=== PATIENT | male | born 1970 | race American Indian/Alaskan Native ===

== ENCOUNTER 2019-10-31 09:30 | Inpatient (IN) | payer OTHER ==
[2019-10-31] MEDS ORDERED: HEPARIN 1,000 UNIT/1 ML VIAL IV ONE (09:40)
[2019-10-31] MEDS ORDERED: ASPIRIN 81 MG TAB CHEW PO ONE (09:40)
[2019-10-31] MEDS ORDERED: SODIUM CHLORIDE 0.9% 1000 ML 1,000 ML IV ONE (09:40)
--- NOTE | 2019-10-31 09:46 | Emergency Department Report ---
ED Chest Pain HPI - General Chief Complaint: Chest Pain Stated Complaint: CHEST PAIN Source: patient Mode of arrival: Ambulatory Limitations: No Limitations - History of Present Illness Initial Comments: 48-year-old -Marshallese male presents to the emergency department through triage with complaint of some midsternal chest pain that has been going on since yesterday and getting progressively worse. He tried some Tylenol for his pain without relief. He denies any shortness of breath, fever, nausea, vomiting, diaphoresis or back pain. He denies any past medical history. He denies any tobacco or illicit drug use. He denies any family history of early cardiac events or disease. Severity scale (0 -10): 10 - Related Data Allergies Allergy/AdvReac Type Severity Reaction Status Date / Time shrimp Allergy Hives Verified 10/31/19 09:35 Heart Score - HEART Score History: Highly suspicious EKG: Significant ST-depression Age: 45-65 Risk factors: 1-2 risk factors Troponin: < normal limit HEART Score: 6 - Critical Actions Critical Actions: 4-6 pts:12-16.6% risk of adverse cardiac event. Should be admitted ED Review of Systems ROS: Stated complaint: CHEST PAIN Other details as noted in HPI Comment: All other systems reviewed and negative Constitutional: denies: chills, fever Eyes: denies: eye pain, vision change ENT: denies: ear pain, throat pain Respiratory: denies: cough, shortness of breath Cardiovascular: chest pain. denies: palpitations Gastrointestinal: denies: abdominal pain, vomiting Genitourinary: denies: dysuria, discharge Musculoskeletal: denies: back pain, arthralgia Skin: denies: rash, lesions Neurological: denies: headache, weakness ED Past Medical Hx - Past Medical History Previous Medical History?: No - Surgical History Past Surgical History?: No ED Physical Exam - General Limitations: No Limitations - Other Other exam information: GENERAL: The patient is well-developed well-nourished. HENT: Normocephalic. Atraumatic. Patient has moist mucous membranes. EYES: Extraocular motions are intact. NECK: Supple. Trachea is midline. CHEST/LUNGS: Clear to auscultation. There is no respiratory distress noted. HEART/CARDIOVASCULAR: Regular. There is no tachycardia. There is no murmur. ABDOMEN: Abdomen is soft, nontender. Patient has normal bowel sounds. SKIN: Skin is warm and dry. NEURO: The patient is awake, alert, and oriented. The patient is cooperative. The patient has no focal neurologic deficits. Normal speech. MUSCULOSKELETAL: There is no tenderness or deformity. There is no evidence of acute injury. ED Course Vital Signs 10/31/19 10/31/19 10/31/19 09:37 09:43 09:45 Temperature 98.5 F Pulse Rate 75 75 74 Respiratory 18 16 13 Rate Blood Pressure 185/115 Blood Pressure 189/116 [Right] O2 Sat by Pulse 100 Oximetry - Consultations Consultation #1: I spoke with, and sent the EKG to, the certified personal trainer Dr. Lynn. Dr. Lynn says to activate the [facility] for a code STEMI. 10/31/19 09:45 YUMIKO score - Yumiko Score Age > 65: (0) No Aspirin use within the Past 7 Days: (0) No 3 or more CAD Risk Factors: (0) No 2 or more Angina events in past 24 hrs: (1) Yes Known CAD with more than 50% Stenosis: (1) Yes Elevated Cardiac Markers: (0) No ST Deviation Greater than 0.5mm: (1) Yes YUMIKO Score: 3 ED Medical Decision Making - Lab Data Result diagrams: 10/31/19 09:46 10/31/19 09:46 - EKG Data -: EKG Interpreted by Me EKG shows normal: sinus rhythm, axis, intervals, QRS complexes (Q waves to the septal leads), ST-T waves (There is some mild concave up ST elevations to the i nferior leads) Rate: normal - EKG Data Interpretation: acute WV (Inferior WV) - Radiology Data Radiology results: image reviewed interpreted by me: Chest x-ray does not show any acute process. There are no pleural effusions, obvious pneumonia and there is no pneumothorax. - Medical Decision Making This patient presents with some Midsternal chest pain that is been going on since yesterday but worsened since prior to presentation. EKG appeared consistent with inferior ST elevation WV and a code STEMI was initiated. Labs have been unremarkable. Chest x-ray did not show any acute process. The patient was taken to the [facility] with [facility] and it appears that the patient received 2 sequential stents in the RCA. Patient will go to the ICU afterwards and was accepted by the hospitalist service. - Differential Diagnosis WV, pneumonia, GERD, costochondritis Critical Care Time: Yes Critical care time in (mins) excluding proc time.: 35 Critical care attestation.: If time is entered above; I have spent that time in minutes in the direct care of this critically ill patient, excluding procedure time. Due to the immediate potential for life-threatening deterioration due to underlying cardiac condition, I spent 35 minutes of critical care time with the patient. Critical care time includes his initial evaluation, multiple re- evaluations, ordering and interpretation of labs and imaging, heparin, discussion with the certified personal trainer. Critical Care Time: 35 minutes ED Disposition Clinical Impression: Hypertension Qualifiers: Hypertension type: essential hypertension Qualified Code(s): I10 - Essential (primary) hypertension STEMI (ST elevation myocardial infarction) Qualifiers: Involved coronary artery: right coronary artery Qualified Code(s): I21.11 - ST elevation (STEMI) myocardial infarction involving right coronary artery Disposition: 09 OP ADMIT IP TO THIS HOSP Is pt being admited?: Yes Condition: Serious Time of Disposition: 10:32
[2019-10-31] MEDS ORDERED: VERAPAMIL 5 MG/2 ML INJ ONE (09:48)
[2019-10-31] MEDS ORDERED: HEPARIN/NS 5000 UNIT/500ML 1,000 ML IR ONE (09:48)
[2019-10-31] MEDS ORDERED: fentaNYL 100 MCG/2 ML INJ ONE (09:48)
[2019-10-31] MEDS ORDERED: MIDAZOLAM 2 MG/2 ML INJ ONE (09:48)
[2019-10-31] MEDS ORDERED: SODIUM CHLORIDE 0.9% 500 ML 500 ML ONE (09:49)
[2019-10-31] MEDS ORDERED: NITROGLYCERIN SYRINGE 3 ML ONE ×2 (09:49→10:50)
[2019-10-31] MEDS ORDERED: LIDOCAINE (2%) 20 MG/1 ML VIAL 20 ML MDV INFILTRATI ONE (09:49)
[2019-10-31] MEDS ORDERED: methylPREDNISolone Sod Succinate 125 MG/2 ML INJ ONE (10:14)
[2019-10-31] MEDS ORDERED: diphenhydrAMINE 50 MG/ML VIAL ONE (10:14)
[2019-10-31] MEDS: HEPARIN 10,000 UNITS/10 ML VIAL ONE ×2 (10:27→10:59)
[2019-10-31] MEDS ORDERED: HEPARIN/ 0.45% NACL DRIP 25,000 UNIT/500 ML BAG IV SCH (10:30)
[2019-10-31 10:37] LABS: Basophils % (Auto) 0.4 % (0.0-1.8); Eosinophils # (Auto) 0.2 K/mm3 (0.0-0.4); Eosinophils % (Auto) 2.8 % (0.0-4.3); Hematocrit 43.7 % (35.5-45.6); Lymphocytes # (Auto) 2.9 K/mm3 (1.2-5.4); Lymphocytes % (Auto) 49.7 % (13.4-35.0); Mean Corpuscular HGB Conc 32 % (32-34); Mean Corpuscular Volume 80 fl (84-94); Monocytes # (Auto) 0.6 K/mm3 (0.0-0.8); Monocytes % (Auto) 11.3 % (0.0-7.3); Platelet Count 267 K/mm3 (140-440); Red Blood Count 5.44 M/mm3 (3.65-5.03); Red Cell Distribution Width 13.5 % (13.2-15.2)
[2019-10-31 10:45] LABS: INR 0.92 (0.87-1.13)
[2019-10-31] MEDS ORDERED: ALUM-MAG HYDROXIDE-SIMETHICONE 200-200-20MG/5ML ORAL LIQD 30 ML ONE (10:55)
[2019-10-31] MEDS ORDERED: CLOPIDOGREL 300 MG TAB ONE (10:55)
[2019-10-31 10:59] LABS: Alanine Aminotransferase 18 units/L (7-56); Albumin 4.3 g/dL (3.9-5); BUN/Creatinine Ratio 17; Blood Urea Nitrogen 15 mg/dL (9-20); Hemolysis Index 35
--- NOTE | 2019-10-31 11:18 | Consultation ---
History of Present Illness Consult date: 10/31/19 Consult reason: chest pain History of present illness: 48y M history of hypertension which he treats conservatively. Presents with chest pain and ECG consistent with acute inferior STEMI. Emergency cardiac cath done, with PCI of the RCA with serial 2.25-2.5mm DE stents. Admit for post [place] supportive and medical therapy. Past History Past Medical History: hypertension Medications and Allergies Allergies Allergy/AdvReac Type Severity Reaction Status Date / Time shrimp Allergy Hives Verified 10/31/19 09:35 Active Meds: Active Medications Sodium Chloride (Nacl 0.9% 1000 Ml) 1,000 mls @ 42 mls/hr IV ONCE ONE Stop: 11/01/19 09:28 Review of Systems Cardiovascular: chest pain Physical Examination Vital Signs Temp Pulse Resp BP Pulse Ox 98.5 F 75 18 189/116 100 10/31/19 09:37 10/31/19 09:37 10/31/19 09:37 10/31/19 09:37 10/31/19 09:37 General appearance: no acute distress HEENT: Positive: PERRL Neck: Positive: neck supple Cardiac: Positive: Reg Rate and Rhythm Lungs: Positive: clear to auscultation Neuro: Positive: Grossly Intact Abdomen: Positive: Soft Male genitourinary: Positive: deferred Skin: Positive: Clear Extremities: Absent: edema Results 10/31/19 09:46 10/31/19 09:46 Cardiac Enzymes 10/31/19 Range/Units 09:46 AST 29 (5-40) units/L Coagulation 10/31/19 Range/Units 09:46 PT 12.5 (12.2-14.9) Sec. INR 0.92 (0.87-1.13) APTT 29.0 (24.2-36.6) Sec. CBC 10/31/19 Range/Units 09:46 WBC 5.8 (4.5-11.0) K/mm3 RBC 5.44 H (3.65-5.03) M/mm3 Hgb 14.0 (11.8-15.2) gm/dl Hct 43.7 (35.5-45.6) % Plt Count 267 (140-440) K/mm3 Lymph # 2.9 (1.2-5.4) K/mm3 [place] # 0.6 (0.0-0.8) K/mm3 Eos # 0.2 (0.0-0.4) K/mm3 Baso # 0.0 (0.0-0.1) K/mm3 Comprehensive Metabolic Panel 10/31/19 Range/Units 09:46 Sodium 142 (137-145) mmol/L Potassium 3.8 (3.6-5.0) mmol/L Chloride 104.1 (98-107) mmol/L Carbon Dioxide 21 L (22-30) mmol/L BUN 15 (9-20) mg/dL Creatinine 0.9 (0.8-1.5) mg/dL Glucose 122 H (75-100) mg/dL Calcium 9.0 (8.4-10.2) mg/dL AST 29 (5-40) units/L ALT 18 (7-56) units/L Alkaline Phosphatase 88 (35-129) units/L Total Protein 7.9 (6.3-8.2) g/dL Albumin 4.3 (3.9-5) g/dL EKG interpretations - Telemetry EKG Rhythm: Sinus Rhythm (with inferior STEMI) Assessment and Plan - Patient Problems (1) STEMI (ST elevation myocardial infarction) Current Visit: Yes Status: Acute Plan to address problem: Emergency cardiac cath done, with PCI of the RCA with serial 2.25-2.5mm DE stents. Admit for post [place] supportive and medical therapy.
--- NOTE | 2019-10-31 11:30 | Cardiac Catherization Report ---
CARDIAC CATHETERIZATION AND CORONARY ANGIOPLASTY REPORT REASON FOR PROCEDURE: The patient is a 48-year-old man that presented to the hospital with chest pain and ECG evidence of an acute inferior wall ST elevation myocardial infarction. Emergency cardiac catheterization protocol was activated. PROCEDURES: 1. Left heart catheterization. 2. Selective left and right coronary angiography. 3. Angioplasty and stenting of the mid and proximal segments of the right coronary artery. 4. Sedation time, start 10:17; end 10:53. The patient was prepped and draped in a sterile fashion after informed consent obtained. Right femoral artery was entered using Seldinger technique followed by placement of a 6-Maltese sheath. Selective left and right coronary angiography was performed using a #4 right and left Alphonso catheter, and the following left coronary angiography, a #4 right Alphonso guiding catheter was used for right coronary angiography. The angiograms were reviewed. CORONARY ANGIOGRAPHY: The left main coronary artery was free of significant disease. The left anterior descending artery contained mild disease in its proximal segment with a less than 20% luminal stenosis, most significantly in the LAD system, there was greater than 99% occlusive stenosis of the distal LAD at the apical segment of the vessel. Beyond this occlusion, the distal LAD was of very small caliber in its short terminal segment. The circumflex artery and its obtuse marginal branches contained mild diffuse luminal irregularities. The right coronary artery was a small caliber, but dominant vessel. This vessel contained a focal, 95-99% stenosis of its mid segment. This was the infarct related lesion. Leading up to the lesion, there was diffuse atherosclerosis of the proximal segments of the right coronary artery, with sequential 70-75% lesions of the proximal segment. CORONARY ANGIOPLASTY: Ad hoc primary intervention to the mid right coronary artery was recommended. We introduced a 0.014 inch Veneer Matcher 50 guidewire, across the lesional segment of the mid vessel. Following wire placement, we used a 2.25 mm balloon catheter to predilate the mid stenosis. We then deployed a 2.25 x 12 mm Resolute drug-eluting stent to this lesion, inflating to optimal pressures. After stabilizing the primary lesion, we then turned our attention to the proximal segments of the vessel. There was a long segment of diffuse atherosclerosis with 2 sequential 75% lesions. Two serial 2.5 mm drug-eluting stents were then deployed to the proximal segment. The stents were overlapped leading from the mid vessel to near the ostium. Following overlapping stents, there was an excellent angiographic result at all treated sites, 0 residual stenosis and YUMIKO 3 flow was maintained in the vessel. The procedure was well tolerated by the patient and there were no complications. CONCLUSION: 1. Successful angioplasty and stenting of the mid and proximal segments of the right coronary artery, with deployment of serial, 2.25-2.5 mm drug-eluting stents, excellent angiographic result. 2. The distal vessel disease of the apical segment of the LAD will be treated medically, not suitable for intervention. 3. Aggressive risk factor modification and medical therapy. 4. Echocardiography for left ventricular function and valvular function assessment. JOB# [id number] BENITO/ROSA
[2019-10-31] MEDS ORDERED: SODIUM CHLORIDE 0.9% 1000 ML 1,000 ML IV SCH (11:45)
[2019-10-31] MEDS: METOPROLOL TARTRATE 50 MG TAB PO SCH ×2 (12:00→21:40)
[2019-10-31] MEDS: LISINOPRIL 20 MG TAB PO SCH (12:00)
--- NOTE | 2019-10-31 12:14 | History and Physical Report ---
History of Present Illness Date of examination: 10/31/19 Date of admission: 10/31/19 10:32 History of present illness: I was asked to see the patient in the ER with acute STEMI at 10:45 AM. Patient was already seen and evaluated by cardiology And patient was taken to [facility] for stat coronary angiogram. I have seen and evaluated the patient in ICU after he returned from [facility] after coronary angiogram status post PCI to RCA Very pleasant 48-year-old -[place] male patient with no significant past medical history except for hypertension, diet controlled presented to the emergency room with chest pain since yesterday. Patient rated his chest pain between 5-6 over 10, pressure to squeezing type associated with mild nausea and shortness of breath no vomiting, no radiation, no aggravating and relieving factors. Patient reports that he got the chest pain when he was at work. Denies shortness of breath, no history of orthopnea or paroxysmal nocturnal dyspnea Never had similar symptoms, never had cardiac work-up Patient does not have a primary care physician. Initial work-up in the emergency room is consistent with acute inferior ST elevation ID, code STEMI was called, cardiology has taken the patient to the heart [facility], underwent coronary angiogram status post PCI to RCA with serial 2.25 and 2.5 mm DE stents and patient was transferred to ICU for close observation Patient is alert and awake in mild discomfort Complains of mild chest pain Vital signs noted Past History Past Medical History: hypertension. denies: diabetes Past Surgical History: No surgical history Social history: lives with family. denies: smoking, alcohol abuse, prescription drug abuse Family history: hypertension Medications and Allergies Allergies Allergy/AdvReac Type Severity Reaction Status Date / Time shrimp Allergy Hives Verified 10/31/19 09:35 Home Medications Medication Instructions Recorded Confirmed Last Taken Type No Known Home Medications [No 10/31/19 10/31/19 Unknown History Reported Home Medications] Active Meds: Active Medications Aspirin (Ecotrin) 325 mg PO QDAY EVI Atorvastatin Calcium (Lipitor) 40 mg PO QHS EVI Clopidogrel Bisulfate (Plavix) 75 mg PO QDAY EVI Sodium Chloride (Nacl 0.9% 1000 Ml) 1,000 mls @ 42 mls/hr IV ONCE ONE Stop: 11/01/19 09:28 Isosorbide Mononitrate (Imdur) 30 mg PO QDAY EVI Lisinopril (Zestril) 20 mg PO QDAY [facility] Metoprolol Tartrate (Metoprolol) 50 mg PO BID [facility] Review of Systems Constitutional: no weight loss, no weight gain, no anorexia, no fatigue Ears, nose, mouth and throat: no nasal congestion, no nasal discharge Cardiovascular: chest pain, shortness of breath, no orthopnea, no palpitations Respiratory: no cough, no hemoptysis Gastrointestinal: no abdominal pain, no nausea, no vomiting Genitourinary Male: no dysuria, no hematuria Integumentary: no rash, no lesions Neurological: no weakness, no numbness Psychiatric: no anxiety, no depression Endocrine: no cold intolerance, no heat intolerance Hematologic/Lymphatic: no easy bruising, no easy bleeding Allergic/Immunologic: no urticaria, no allergic rhinitis Exam - Constitutional Vitals: Temp Pulse Resp BP Pulse Ox 98.5 F 74 13 185/115 100 10/31/19 09:37 10/31/19 09:45 10/31/19 09:45 10/31/19 09:45 10/31/19 09:37 General appearance: Present: mild distress, well-nourished - EENT Eyes: Present: PERRL, EOM intact - Neck Neck: Present: supple, normal ROM - Respiratory Respiratory effort: normal Respiratory: bilateral: diminished, negative: rales, rhonchi, wheezing - Cardiovascular Rhythm: regular Heart Sounds: Present: S1 & S2 - Extremities Extremities: no ischemia, No edema - Abdominal General gastrointestinal: Present: soft, non-tender, non-distended, normal bowel sounds - Integumentary Integumentary: Present: clear, warm - Musculoskeletal Musculoskeletal: strength equal bilaterally - Psychiatric Psychiatric: appropriate mood/affect, cooperative - Neurologic Neurologic: CNII-XII intact, moves all extremities Results - Labs CBC & Chem 7: 10/31/19 09:46 10/31/19 09:46 Labs: Abnormal lab results 10/31/19 10/31/19 Range/Units 09:46 09:46 RBC 5.44 H (3.65-5.03) M/mm3 MCV 80 L (84-94) fl MCH 26 L (28-32) pg Lymph % (Auto) 49.7 H (13.4-35.0) % Dane % (Auto) 11.3 H (0.0-7.3) % Seg Neutrophils % 35.8 L (40.0-70.0) % Carbon Dioxide 21 L (22-30) mmol/L Glucose 122 H (75-100) mg/dL Assessment and Plan --Acute ST elevation ID; Status post emergent coronary angiogram Status post PCI to RCA with serial MARILUZ placement DC heparin drip, aspirin and Plavix Nitrate, beta-blockers and TIA inhibitors --Hypertension; moderate control Continue beta-blockers ,TIA inhibitors, nitrates --Dyslipidemia: Statin --DVT prophylaxis; on heparin drip Monitor closely and adjust management as needed Cardiology recommendations noted and appreciated Plan of care reviewed with the patient and his nurse Critical care time 45 minutes
--- NOTE | 2019-10-31 13:18 | XRay Report ---
CHEST 1 VIEW 10/31/2019 12:37 PM INDICATION / CLINICAL INFORMATION: CP/ CODE STEMI, PT IS IN [facility]. AYT. COMPARISON: None available. FINDINGS: SUPPORT DEVICES: None. HEART / MEDIASTINUM: No significant abnormality. LUNGS / PLEURA: No significant pulmonary or pleural abnormality. No pneumothorax. ADDITIONAL FINDINGS: No significant additional findings. IMPRESSION: 1. No acute findings. Signer Name: Balbir Amaya MD Signed: 10/31/2019 1:13 PM Workstation Name: [id number]
[2019-10-31 14:10] LABS: Creatine Kinase MB 10.1 ng/mL (0.0-4.0)
[2019-10-31 14:26] LABS: Chol/HDL Ratio 3.61 %
[2019-10-31] MEDS ORDERED: HEPARIN 10,000 UNITS/10 ML VIAL ONE (18:50)
[2019-10-31] MEDS ORDERED: ASPIRIN 81 MG TAB CHEW ONE (18:50)
--- NOTE | 2019-11-01 02:59 | XRay Report ---
CHEST 1 VIEW INDICATION: post pci. COMPARISON: One day prior. FINDINGS: Support devices: None. Heart: Stable. Lungs/Pleura: No acute pulmonary or pleural findings. IMPRESSION: 1. No significant change. Signer Name: German Butler MD Signed: 11/01/2019 2:54 AM Workstation Name: [id number]
[2019-11-01 06:01] LABS: Basophils % (Auto) 0.1 % (0.0-1.8); Eosinophils % (Auto) 0.1 % (0.0-4.3); Hematocrit 40.8 % (35.5-45.6); Hemoglobin 13.1 gm/dl (11.8-15.2); Lymphocytes % (Auto) 20.6 % (13.4-35.0); Mean Corpuscular HGB Conc 32 % (32-34); Mean Corpuscular Volume 80 fl (84-94); Monocytes # (Auto) 0.8 K/mm3 (0.0-0.8); Monocytes % (Auto) 8.4 % (0.0-7.3); Platelet Count 268 K/mm3 (140-440); Red Cell Distribution Width 13.4 % (13.2-15.2)
[2019-11-01 06:23] LABS: BUN/Creatinine Ratio 14; Blood Urea Nitrogen 11 mg/dL (9-20); Calcium 9.1 mg/dL (8.4-10.2); Hemolysis Index 4
[2019-11-01] MEDS: ASPIRIN EC 325 MG TAB PO SCH (10:00)
[2019-11-01] MEDS: CLOPIDOGREL 75 MG TAB PO SCH (10:01)
[2019-11-01] MEDS: METOPROLOL TARTRATE 50 MG TAB PO SCH ×2 (10:01→21:59)
[2019-11-01] MEDS: LISINOPRIL 20 MG TAB PO SCH (10:02)
--- NOTE | 2019-11-01 10:25 | Progress Note ---
Assessment and Plan Acute inferior STEMI s/p PCI of the RCA with drug eluting stents. on plavix and aspirin Hypertension Plan: Echocardiogram for LVEF assessment. Continue medical therapy for coronary disease. Okay for transfer to telemetry. Patient seen in conjunction with Dr Lynn who agrees with the plan. Subjective Date of service: 11/01/19 Interval history: Patient is resting in bed and appears comfortable. He denies chest pain. Objective Vital Signs Temp Pulse Pulse Resp BP Pulse Ox 11/01/19 10:02 62 115/72 11/01/19 10:01 62 119/72 11/01/19 10:00 65 119/72 100 11/01/19 08:30 59 L 17 118/71 100 11/01/19 08:00 98.1 F 56 L 62 14 120/73 99 11/01/19 07:30 53 L 17 115/74 99 11/01/19 07:00 60 14 127/76 100 11/01/19 06:30 51 L 14 117/77 100 11/01/19 06:00 98 F 54 L 19 117/77 100 11/01/19 05:50 57 L 16 117/77 100 11/01/19 05:40 51 L 19 117/77 100 11/01/19 05:30 49 L 16 121/46 100 11/01/19 05:20 59 L 16 121/46 100 11/01/19 05:10 49 L 16 121/46 100 11/01/19 05:00 98.2 F 58 L 16 116/81 100 11/01/19 04:50 58 L 15 116/81 100 11/01/19 04:40 52 L 14 116/81 100 11/01/19 04:30 51 L 13 116/81 100 11/01/19 04:20 47 L 9 L 116/81 100 11/01/19 04:10 43 L 14 116/81 100 11/01/19 04:00 97.7 F 61 71 14 130/95 100 11/01/19 03:50 48 L 15 130/95 100 11/01/19 03:40 48 L 14 130/95 100 11/01/19 03:33 100 11/01/19 03:30 49 L 15 130/95 11/01/19 03:20 49 L 14 130/95 100 11/01/19 03:10 57 L 15 130/95 100 11/01/19 03:00 98 F 48 L 9 L 130/95 100 11/01/19 02:50 45 L 11 L 130/95 100 11/01/19 02:40 44 L 9 L 130/95 100 11/01/19 02:30 50 L 15 101/60 99 11/01/19 02:20 47 L 5 L 101/60 99 11/01/19 02:10 47 L 12 101/60 99 11/01/19 02:00 98 F 50 L 15 101/60 99 11/01/19 01:50 56 L 14 101/60 98 11/01/19 01:40 46 L 14 101/60 98 11/01/19 01:30 52 L 15 106/65 98 11/01/19 01:20 52 L 15 106/65 99 11/01/19 01:10 50 L 15 106/65 99 11/01/19 01:00 98.3 F 51 L 15 105/73 98 11/01/19 00:50 47 L 14 105/73 99 11/01/19 00:40 48 L 15 105/73 100 11/01/19 00:30 45 L 13 105/73 99 11/01/19 00:20 45 L 15 105/73 100 11/01/19 00:10 49 L 14 105/73 98 11/01/19 00:00 98.3 F 49 L 48 L 17 99/68 96 10/31/19 23:50 50 L 10 L 99/68 100 10/31/19 23:40 48 L 14 99/68 98 10/31/19 23:30 51 L 14 118/43 10/31/19 23:20 51 L 14 118/43 100 10/31/19 23:10 51 L 14 118/43 98 10/31/19 23:00 98.1 F 49 L 14 118/43 100 10/31/19 22:50 48 L 14 118/43 97 10/31/19 22:40 47 L 12 118/43 97 10/31/19 22:30 48 L 16 118/43 99 10/31/19 22:20 49 L 18 118/43 100 10/31/19 22:10 49 L 13 118/43 100 10/31/19 22:02 47 L 16 118/43 100 10/31/19 22:00 98.2 F 48 L 18 111/60 100 10/31/19 21:50 62 17 111/60 100 10/31/19 21:40 62 12 111/60 99 10/31/19 21:30 51 L 15 114/54 100 10/31/19 21:20 48 L 15 114/54 100 10/31/19 21:10 51 L 15 114/54 99 10/31/19 21:00 98.2 F 50 L 13 105/64 100 10/31/19 20:50 51 L 11 L 105/64 100 10/31/19 20:40 51 L 19 105/64 100 10/31/19 20:30 51 L 15 106/63 100 10/31/19 20:20 54 L 16 106/63 100 10/31/19 20:10 53 L 20 106/63 100 10/31/19 20:00 98 F 55 L 62 12 104/65 100 10/31/19 19:50 52 L 19 100/61 100 10/31/19 19:40 64 11 L 100/61 99 10/31/19 19:30 50 L 18 104/65 100 10/31/19 19:20 54 L 16 104/65 99 10/31/19 19:10 56 L 21 104/65 100 10/31/19 19:00 98 F 56 L 19 104/65 98 10/31/19 18:50 57 L 15 103/68 100 10/31/19 18:40 57 L 21 103/68 100 10/31/19 18:30 58 L 11 L 144/98 99 10/31/19 18:20 57 L 11 L 144/98 100 10/31/19 18:10 57 L 19 144/98 98 10/31/19 18:00 98.1 F 58 L 12 101/71 100 10/31/19 17:50 55 L 21 114/54 100 10/31/19 17:40 61 13 114/54 98 10/31/19 17:30 61 12 101/71 100 10/31/19 17:20 60 22 101/71 99 10/31/19 17:10 63 12 101/71 100 10/31/19 17:00 98.1 F 70 16 101/71 99 10/31/19 16:50 73 13 111/71 99 10/31/19 16:40 61 15 111/71 100 10/31/19 16:30 59 L 13 115/71 100 10/31/19 16:20 62 20 115/71 100 10/31/19 16:10 62 21 115/71 100 10/31/19 16:00 98.6 F 59 L 67 15 124/83 99 10/31/19 15:50 69 26 H 124/83 99 10/31/19 15:40 69 20 124/83 100 10/31/19 15:30 68 13 133/76 100 10/31/19 15:20 66 21 133/76 100 10/31/19 15:10 64 21 133/76 100 10/31/19 15:00 69 17 133/76 98 10/31/19 14:50 65 23 133/85 100 10/31/19 14:40 70 13 133/85 100 10/31/19 14:30 70 12 133/85 10/31/19 14:20 67 16 136/85 100 10/31/19 14:10 65 16 136/85 100 10/31/19 14:00 98.1 F 69 18 130/80 100 10/31/19 13:53 70 17 98 10/31/19 13:50 76 12 133/82 100 10/31/19 13:40 62 18 139/83 100 10/31/19 13:30 98.1 F 65 18 130/80 100 10/31/19 13:20 59 L 24 139/83 100 10/31/19 13:10 63 21 139/83 100 10/31/19 13:00 98.1 F 69 18 130/80 100 10/31/19 12:50 59 L 16 136/91 100 10/31/19 12:45 98.1 F 72 18 130/80 100 10/31/19 12:42 58 L 19 100 10/31/19 12:30 98 F 70 17 130/80 98 10/31/19 12:23 56 L 11 L 136/91 100 10/31/19 12:16 158/84 10/31/19 12:15 98 F 67 15 130/80 98 10/31/19 12:00 98 F 62 15 147/81 100 10/31/19 11:56 138/58 10/31/19 11:53 62 15 - Physical Examination General: No Apparent Distress HEENT: Positive: PERRL Neck: Positive: neck supple Cardiac: Positive: Reg Rate and Rhythm Lungs: Positive: Decreased Breath Sounds Neuro: Positive: Grossly Intact Abdomen: Positive: Soft Skin: Positive: Clear Extremities: Absent: edema - Labs and Meds Cardiac Enzymes 10/31/19 10/31/19 11/01/19 Range/Units 09:46 13:05 05:36 AST 29 (5-40) units/L CK-MB (CK-2) 10.1 H 16.0 H (0.0-4.0) ng/mL Coagulation 10/31/19 Range/Units 09:46 PT 12.5 (12.2-14.9) Sec. INR 0.92 (0.87-1.13) APTT 29.0 (24.2-36.6) Sec. Lipids 10/31/19 Range/Units 13:05 Triglycerides 37 (2-149) mg/dL Cholesterol 206 H (50-199) mg/dL HDL Cholesterol 57 (40-59) mg/dL Cholesterol/HDL Ratio 3.61 % CBC 10/31/19 11/01/19 Range/Units 09:46 05:36 WBC 5.8 9.8 (4.5-11.0) K/mm3 RBC 5.44 H 5.10 H (3.65-5.03) M/mm3 Hgb 14.0 13.1 (11.8-15.2) gm/dl Hct 43.7 40.8 (35.5-45.6) % Plt Count 267 268 (140-440) K/mm3 Lymph # 2.9 2.0 (1.2-5.4) K/mm3 [place] # 0.6 0.8 (0.0-0.8) K/mm3 Eos # 0.2 0.0 (0.0-0.4) K/mm3 Baso # 0.0 0.0 (0.0-0.1) K/mm3 Comprehensive Metabolic Panel 10/31/19 11/01/19 Range/Units 09:46 05:36 Sodium 142 141 (137-145) mmol/L Potassium 3.8 4.7 D (3.6-5.0) mmol/L Chloride 104.1 104.8 (98-107) mmol/L Carbon Dioxide 21 L 25 (22-30) mmol/L BUN 15 11 (9-20) mg/dL Creatinine 0.9 0.8 (0.8-1.5) mg/dL Glucose 122 H 112 H (75-100) mg/dL Calcium 9.0 9.1 (8.4-10.2) mg/dL AST 29 (5-40) units/L ALT 18 (7-56) units/L Alkaline Phosphatase 88 (35-129) units/L Total Protein 7.9 (6.3-8.2) g/dL Albumin 4.3 (3.9-5) g/dL
--- NOTE | 2019-11-01 10:32 | Progress Note ---
Assessment and Plan Assessment and plan: --Acute inferior wall ST elevation NC; Status post PCI to RCA with serial MARILUZ placement Continue aspirin and Plavix Nitrates, beta-blockers and TIA inhibitors Follow echo for LV function ejection fraction --Hypertension; moderate control Continue beta-blockers ,TIA inhibitors, nitrates --Dyslipidemia: Statin --DVT prophylaxis; Lovenox Patient is stable for transfer to Telemetry Increase ambulation as tolerated Possible discharge home tomorrow if stable And cleared by cardiology Plan of care reviewed with the patient and his nurse Critical care time 32 minutes History Interval history: Patient seen and examined at bedside this morning Patient's chart and other medical records reviewed Patient is comfortable denies any chest pain or shortness of breath Vital signs stable Hospitalist Physical - Constitutional Vitals: Temp Pulse Resp BP Pulse Ox 98.1 F 62 17 115/72 100 11/01/19 08:00 11/01/19 10:02 11/01/19 08:30 11/01/19 10:02 11/01/19 10:00 General appearance: Present: no acute distress, well-nourished - EENT Eyes: Present: PERRL, EOM intact - Neck Neck: Present: supple, normal ROM - Respiratory Respiratory effort: normal Respiratory: bilateral: diminished, negative: rales, rhonchi, wheezing - Cardiovascular Rhythm: regular Heart Sounds: Present: S1 & S2 - Extremities Extremities: no ischemia, No edema - Abdominal General gastrointestinal: soft, non-tender, non-distended, normal bowel sounds - Integumentary Integumentary: Present: clear, warm - Psychiatric Psychiatric: appropriate mood/affect, cooperative - Neurologic Neurologic: moves all extremities LUIS score - Luis Score Age > 65: (0) No Aspirin use within the Past 7 Days: (0) No 3 or more CAD Risk Factors: (0) No 2 or more Angina events in past 24 hrs: (1) Yes Known CAD with more than 50% Stenosis: (1) Yes Elevated Cardiac Markers: (0) No ST Deviation Greater than 0.5mm: (1) Yes LUIS Score: 3 Results - Labs CBC & Chem 7: 11/01/19 05:36 11/01/19 05:36 Labs: Laboratory Last Values WBC 9.8 K/mm3 (4.5-11.0) 11/01/19 05:36 RBC 5.10 M/mm3 (3.65-5.03) H 11/01/19 05:36 Hgb 13.1 gm/dl (11.8-15.2) 11/01/19 05:36 Hct 40.8 % (35.5-45.6) 11/01/19 05:36 MCV 80 fl (84-94) L 11/01/19 05:36 MCH 26 pg (28-32) L 11/01/19 05:36 MCHC 32 % (32-34) 11/01/19 05:36 RDW 13.4 % (13.2-15.2) 11/01/19 05:36 Plt Count 268 K/mm3 (140-440) 11/01/19 05:36 Lymph % (Auto) 20.6 % (13.4-35.0) 11/01/19 05:36 [place] % (Auto) 8.4 % (0.0-7.3) H 11/01/19 05:36 Eos % (Auto) 0.1 % (0.0-4.3) 11/01/19 05:36 Baso % (Auto) 0.1 % (0.0-1.8) 11/01/19 05:36 Lymph # 2.0 K/mm3 (1.2-5.4) 11/01/19 05:36 [place] # 0.8 K/mm3 (0.0-0.8) 11/01/19 05:36 Eos # 0.0 K/mm3 (0.0-0.4) 11/01/19 05:36 Baso # 0.0 K/mm3 (0.0-0.1) 11/01/19 05:36 Seg Neutrophils % 70.8 % (40.0-70.0) H 11/01/19 05:36 Seg Neutrophils # 6.9 K/mm3 (1.8-7.7) 11/01/19 05:36 PT 12.5 Sec. (12.2-14.9) 10/31/19 09:46 INR 0.92 (0.87-1.13) 10/31/19 09:46 APTT 29.0 Sec. (24.2-36.6) 10/31/19 09:46 Activated Clotting Time 230 (74-137) H 10/31/19 11:04 Sodium 141 mmol/L (137-145) 11/01/19 05:36 Potassium 4.7 mmol/L (3.6-5.0) D 11/01/19 05:36 Chloride 104.8 mmol/L (98-107) 11/01/19 05:36 Carbon Dioxide 25 mmol/L (22-30) 11/01/19 05:36 Anion Gap 16 mmol/L 11/01/19 05:36 BUN 11 mg/dL (9-20) 11/01/19 05:36 Creatinine 0.8 mg/dL (0.8-1.5) 11/01/19 05:36 Estimated GFR > 60 ml/min 11/01/19 05:36 BUN/Creatinine Ratio 14 % 11/01/19 05:36 Glucose 112 mg/dL (75-100) H 11/01/19 05:36 POC Glucose 95 (70-105) 11/01/19 05:31 Calcium 9.1 mg/dL (8.4-10.2) 11/01/19 05:36 Total Bilirubin 0.20 mg/dL (0.1-1.2) 10/31/19 09:46 AST 29 units/L (5-40) 10/31/19 09:46 ALT 18 units/L (7-56) 10/31/19 09:46 Alkaline Phosphatase 88 units/L (35-129) 10/31/19 09:46 Total Creatine Kinase 248 units/L (55-170) H 11/01/19 05:36 CK-MB (CK-2) 16.0 ng/mL (0.0-4.0) H 11/01/19 05:36 CK-MB (CK-2) Rel Index 6.4 (0-4) H 11/01/19 05:36 Troponin T 0.149 ng/mL (0.00-0.029) H* D 11/01/19 05:36 Total Protein 7.9 g/dL (6.3-8.2) 10/31/19 09:46 Albumin 4.3 g/dL (3.9-5) 10/31/19 09:46 Albumin/Globulin Ratio 1.2 % 10/31/19 09:46 Triglycerides 37 mg/dL (2-149) 10/31/19 13:05 Cholesterol 206 mg/dL (50-199) H 10/31/19 13:05 LDL Cholesterol Direct 142 mg/dL (50-130) H 10/31/19 13:05 HDL Cholesterol 57 mg/dL (40-59) 10/31/19 13:05 Cholesterol/HDL Ratio 3.61 % 10/31/19 13:05 Blood Type B NEGATIVE 10/31/19 13:15 Antibody Screen Negative 10/31/19 13:15 Active Medications - Current Medications Current Medications: Generic Name Dose Route Start Last Admin Trade Name Gualbertoq PRN Reason Stop Dose Admin Aspirin 325 mg 11/01/19 10:00 11/01/19 10:00 Ecotrin PO 325 mg QDAY EVI Administration Atorvastatin Calcium 40 mg 10/31/19 22:00 10/31/19 21:40 Lipitor PO 40 mg QHS EVI Administration Clopidogrel Bisulfate 75 mg 11/01/19 10:00 11/01/19 10:01 Plavix PO 75 mg QDAY EVI Administration Isosorbide Mononitrate 30 mg 10/31/19 12:00 11/01/19 10:00 Imdur PO 30 mg QDAY EVI Administration Lisinopril 20 mg 10/31/19 12:00 11/01/19 10:02 Zestril PO 20 mg QDAY EVI Administration Metoprolol Tartrate 50 mg 10/31/19 12:00 11/01/19 10:01 Metoprolol PO 50 mg BID EVI Administration Pneumococcal Polyvalent Vaccine 0.5 ml 11/01/19 12:00 Pneumovax 23 IM 11/01/19 12:01 .ONCE ONE
[2019-11-01] MEDS ORDERED: PNEUMOCOCCAL 23 Valent 0.5 ML VIAL IM ONE (12:00)
[2019-11-01] MEDS ORDERED: FLU VACC QUAD 2019-20 (3 YR UP)/PF 60 MCG/0.5 ML SYRINGE IM ONE (12:00)
[2019-11-01 14:13] LABS: Creatine Kinase MB 13.1 ng/mL (0.0-4.0)
[2019-11-02] MEDS: LISINOPRIL 20 MG TAB PO SCH (10:59)
[2019-11-02] MEDS: CLOPIDOGREL 75 MG TAB PO SCH (11:00)
[2019-11-02] MEDS: ASPIRIN EC 325 MG TAB PO SCH (11:00)
--- NOTE | 2019-11-02 13:42 | Event Note ---
Date: 11/02/19 Patient looks and feels well, OK for cardiac discharge on current medical therapy. Follow up in our office 1 week.
[2019-11-02] MEDS: METOPROLOL TARTRATE 50 MG TAB PO SCH (15:05)
[2019-11-02 15:06] VITALS: BP 120/68
--- NOTE | 2019-11-02 15:36 | Discharge Summary ---
Providers - Providers Date of Admission: 10/31/19 10:32 Date of discharge: 11/02/19 Attending physician: ADALGISA HERRERA 10/31/19 Consult to Cardiac Rehabilitation [CONS] Routine Reason For Exam: post pci Primary care physician: [facility] Hospitalization Condition: Serious Disposition: DC-01 TO HOME OR SELFCARE Time spent for discharge: 35 min Core Measure Documentation - Palliative Care Palliative Care/ Comfort Measures: Not Applicable - Core Measures Any of the following diagnoses?: acute DC - Acute DC Discharge Requirements Aspirin at discharge: Yes TIA/ARB for LVSD if EF <40%: Yes Beta rojas at discharge: Yes Statin for LDL = or >100 mg/dl on DC: Yes Exam - Constitutional Vitals: Temp Pulse Resp BP Pulse Ox 97.8 F 85 16 120/68 94 11/02/19 09:25 11/02/19 15:05 11/02/19 09:25 11/02/19 15:05 11/02/19 12:59 General appearance: Present: no acute distress, well-nourished - EENT Eyes: Present: PERRL, EOM intact - Neck Neck: Present: supple, normal ROM - Respiratory Respiratory effort: normal Respiratory: bilateral: diminished, negative: rales, rhonchi, wheezing - Cardiovascular Rhythm: regular Heart Sounds: Present: S1 & S2 - Extremities Extremities: no ischemia, No edema - Abdominal General gastrointestinal: Present: soft, non-tender, non-distended, normal bowel sounds - Integumentary Integumentary: Present: clear, warm - Musculoskeletal Musculoskeletal: strength equal bilaterally - Psychiatric Psychiatric: appropriate mood/affect, cooperative - Neurologic Neurologic: CNII-XII intact, moves all extremities Plan Activity: advance as tolerated Diet: other (cardiac diet) Additional Instructions: Patient to comply with medications, diet and follow-up visits. If you have any severe chest pain or shortness of breath, contact MD or go to emergency room Follow up with: DEBRA GARCIA MD [Staff Physician] - 7 Days PRIMARY CARE, [Primary Care Provider] - 3-5 Days Forms: [facility] PCI D/C Instructions Prescriptions: ISOSORBIDE MONOnitrate [Imdur ER] 30 mg PO QDAY #30 tablet AtorvaSTATin [Lipitor] 40 mg PO QHS #30 tablet Clopidogrel [Plavix] 75 mg PO QDAY #30 tablet lisinopriL [Zestril TAB] 20 mg PO QDAY #30 tablet
== END 2019-11-02 17:10 | disposition home or self-care (01) | DRG 247 ==
LOC: ED 09:30 → CC1 10:32 → 4A 11-01 13:00
PROVIDERS: ADMIT Internal Medicine; ATTEND Internal Medicine
PROC: 027036Z Dilation of Coronary Artery, One Artery with Three Drug-eluting Intraluminal Devices, Percutaneous Approach (ICD-10-PCS; principal; 2019-10-31)
PROC: 4A023N7 Measurement of Cardiac Sampling and Pressure, Left Heart, Percutaneous Approach (ICD-10-PCS; 2019-10-31)
PROC: B2111ZZ Fluoroscopy of Multiple Coronary Arteries using Low Osmolar Contrast (ICD-10-PCS; 2019-10-31)
PROC: 3E0234Z Introduction of Serum, Toxoid and Vaccine into Muscle, Percutaneous Approach (ICD-10-PCS; 2019-11-01)
DX: I21.19 ST elevation (STEMI) myocardial infarction involving other coronary artery of inferior wall (principal); E78.5 Hyperlipidemia, unspecified; I10 Essential (primary) hypertension; Z23 Encounter for immunization; Z88.8 Allergy status to other drugs, medicaments and biological substances; Z82.49 Family history of ischemic heart disease and other diseases of the circulatory system
CPT/HCPCS: 36415; 71045; 80048; 80053; 80061; 82550; 82553; 82962; 84484; 85025; 85347; 85610; 85730; 86850; 86900; 86901; 90686; 90732; 92941; 93005; 93010; 93306; 93454; 94760; G0378; A9270-GY; C1725; C1760; C1769; C1874; C1887; C1894; C9606; J1200; J1644; J2250; J2930; J3010; J7030; J7040; Q9967